=== PATIENT | female | born 1990 | race Caucasian/White ===

== ENCOUNTER 2019-05-15 10:10 | Inpatient (IN) | payer BC ==
[~2019-05-15] VITALS: Ht 177.8 cm; Wt 75.0 kg
--- NOTE | 2019-05-15 10:38 | NUR ---
PT HERE WITH C/O VB, CRAMPING, AND RIGHT AND LEFT LOWER QUADRANT ABOMINAL PAIN. PT STATES SHE IS APPROX. 14 WEEKS BUT STATES "MY OB THINKS IT'S ECTOPIC OR MOLAR BECAUSE IT'S WEIRD AND THEY CAN'T EVER SEE A BABY ON THE US AND THERE'S NO HEARTBEAT OR ANYTHING." PT AAO X 4, DRESSED IN GOWN AND ATTACHED TO MONITOR. NAD, ROOM AIR, CALL LIGHT WITHIN REACH, AT BEDSIDE FOR EXAM AND PLAN IS TO DO LABS AND US.
--- NOTE | 2019-05-15 10:44 | NUR ---
PT TO US.
[2019-05-15 10:55] LABS: BASOPHILS # (AUTO) 0.03 x10^3/uL (0-0.1); BASOPHILS % (AUTO) 1 % (0-1); EOSINOPHILS # (AUTO) 0.08 x10^3/uL (0-0.4); EOSINOPHILS % (AUTO) 2 % (1-7); LYMPHOCYTES # (AUTO) 1.79 x10^3/uL (1-3.4); LYMPHOCYTES % (AUTO) 50 % (22-44); MD NO; MEAN CORPUSCULAR HEMOGLOBIN 31.6 pg (27.0-34.8); MEAN CORPUSCULAR HGB CONC 32.9 g/dL (32.4-35.8); MEAN CORPUSCULAR VOLUME 95.9 fL (80-100); MEAN PLATELET VOLUME 8.2 fL (7.4-10.4); MONOCYTES # (AUTO) 0.49 x10^3/uL (0.2-0.8); MONOCYTES % (AUTO) 14 % (2-9); NEUTROPHILS % (AUTO) 34 % (42-75); PLATELET COUNT 162 x10^3/uL (130-400); RED BLOOD COUNT 4.14 x10^6/uL (3.82-5.3); RED CELL DISTRIBUTION WIDTH 13.3 % (9.6-15.2)
[2019-05-15 11:00] LABS: INTERNATIONAL NORMALIZED RATIO 0.89 (0.93-1.1); PROTHROMBIN TIME 9.4 Seconds (9.6-11.5)
[2019-05-15 11:03] LABS: ALANINE AMINOTRANSFERASE 262 U/L (12-78); ALBUMIN 3.9 g/dL (3.4-5.0); ANION GAP 4 mmol/L (5-15); CALCIUM 8.6 mg/dL (8.5-10.1); CHLORIDE 110 mmol/L (98-107); CREATININE 0.71 mg/dL (0.55-1.02)
[2019-05-15 11:08] LABS: ALKALINE PHOSPHATASE 56 U/L (45-117); BILIRUBIN,TOTAL 0.3 mg/dL (0.2-1.0); TOTAL PROTEIN 7.6 g/dL (6.4-8.2)
--- NOTE | 2019-05-15 11:21 | NUR ---
PT BACK FROM US.
--- NOTE | 2019-05-15 11:51 | NUR ---
ALL RESULTS BACK AT THIS TIME, CHART UP FOR RECHECK.
[2019-05-15 12:43] VITALS: BP 117/75
--- NOTE | 2019-05-15 12:43 | NUR ---
THIS RN DISCUSSED WITH MD THE PT'S POC, PLAN FOR ADMIT AND OR AT 1430 FOR D&C. PIV ESTABLISHED BY THIS RN, PT UPDATED AND AWARE.
--- NOTE | 2019-05-15 13:19 | NUR ---
REPORT GIVEN TO PRE-OP RN LUDWIG. PT TO TRANSFER TO PRE-OP FOR SURGERY.
[2019-05-15] MEDS ORDERED: LACTATED RINGERS 1,000 ML IV SCH (13:55)
[2019-05-15] MEDS ORDERED: PROPOFOL 50 ML ONE (15:52)
[2019-05-15] MEDS ORDERED: MIDAZOLAM 1 MG/ML, 2ML ONE (15:52)
[2019-05-15] MEDS ORDERED: FENTANYL PF 250 MCG/5ML ONE (15:53)
[2019-05-15] MEDS ORDERED: BUPIVACAINE/PF 0.25% ONE (16:07)
[2019-05-15] MEDS ORDERED: MISOPROSTOL 200 MCG TABLET ONE (16:07)
[2019-05-15] MEDS ORDERED: METHYLERGONOVINE 0.2 MG/ML IM ONE (16:08)
[2019-05-15] MEDS ORDERED: EPINEPHRINE 1 MG/ML, 1ML ONE (16:08)
[2019-05-15] MEDS ORDERED: OXYTOCIN 10 UNITS/ML, 1ML ONE (16:08)
[2019-05-15] MEDS ORDERED: FENTANYL PF 100 MCG/2ML ONE (16:16)
[2019-05-15] MEDS ORDERED: DEXAMETHASONE 4 MG/ML, 1ML ONE (16:26)
[2019-05-15] MEDS ORDERED: ONDANSETRON 2MG/ML, 2ML ONE (16:26)
[2019-05-15] MEDS ORDERED: KETOROLAC 30 MG/1 ML ONE (16:26)
[2019-05-15] MEDS ORDERED: DIAZEPAM 5 MG/ML, 2ML IVPush PRN (16:30)
[2019-05-15] MEDS ORDERED: ONDANSETRON 2MG/ML, 2ML IV PRN (16:30)
[2019-05-15] MEDS ORDERED: PROMETHAZINE 25 MG/ML, 1ML IV PRN (16:30)
[2019-05-15] MEDS ORDERED: EPHEDRINE 50 MG/ML, 1ML IM PRN (16:30)
[2019-05-15] MEDS ORDERED: DIPHENHYDRAMINE 50 MG/ML, 1ML IVPush PRN (16:30)
[2019-05-15] MEDS ORDERED: ONDANSETRON ODT 8 MG PO PRN (16:30)
[2019-05-15] MEDS ORDERED: HYDROmorphone 2 MG/ML, 1ML IVPush PRN ×2 (16:30→17:00)
[2019-05-15] MEDS ORDERED: ACETAMINOPHEN 325 MG TABLET PO PRN (16:30)
[2019-05-15] MEDS ORDERED: MEPERIDINE/PF 25MG/ML,1ML IVPush PRN (16:30)
[2019-05-15] MEDS ORDERED: OXYcodone 5 MG/5 ML ORAL.SOL UDC PO PRN ×2 (16:30→17:00)
[2019-05-15] MEDS: FENTANYL PF 100 MCG/2ML IV PRN ×2 (16:31→16:38)
[2019-05-15] MEDS ORDERED: OXYcodone 5 MG/5 ML ORAL.SOL UDC ONE (16:33)
== END 2019-05-15 17:40 | disposition home or self-care (01) | DRG 779 ==
LOC: ED 12:20 → EDIP 12:21 → ED 12:31
PROVIDERS: ADMIT Obstetrics & Gynecology Female Pelvic Medicine and Reconstructive Surgery; ATTEND Obstetrics & Gynecology Female Pelvic Medicine and Reconstructive Surgery
PROC: 10D17Z9 Manual Extraction of Products of Conception, Retained, Via Natural or Artificial Opening (ICD-10-PCS; principal; 2019-05-15 14:30)
DX: O02.1 Missed abortion (principal); O26.21 Pregnancy care for patient with recurrent pregnancy loss, first trimester; Z3A.12 12 weeks gestation of pregnancy
CPT/HCPCS: 36415; 76801; 80053; 84702; 85025; 85610; 86901; 88305; J0171; J1100; J1885; J2250; J2405; J2704; J3010; J3490; J2210; J2590

== ENCOUNTER 2021-02-05 08:37 | Inpatient (IN) | payer OTHER ==
[~2021-02-05] VITALS: Ht 177.8 cm; Wt 82.0 kg
[2021-02-05] MEDS: LACTATED RINGERS 1,000 ML IV SCH (23:40)
[2021-02-05 23:54] LABS: BASOPHILS % (AUTO) 1 % (0-1); EOSINOPHILS % (AUTO) 1 % (1-7); LYMPHOCYTES % (AUTO) 25 % (22-44); MEAN CORPUSCULAR HGB CONC 33.2 g/dL (32.4-35.8); MEAN PLATELET VOLUME 8.3 fL (7.4-10.4); MONOCYTES % (AUTO) 8 % (2-9); NEUTROPHILS % (AUTO) 65 % (42-75); PLATELET COUNT 174 x10^3/uL (130-400); RED BLOOD COUNT 4.01 x10^6/uL (3.82-5.3); RED CELL DISTRIBUTION WIDTH 13.8 % (9.6-15.2)
[2021-02-06] MEDS ORDERED: TERBUTALINE 1 MG/ML, 1ML IVPush PRN
[2021-02-06] MEDS ORDERED: TERBUTALINE 1 MG/ML, 1ML SQ PRN
[2021-02-06] MEDS ORDERED: OXYTOCIN 30U/ 0.9% NaCL 500ML 500 ML IV PRN
[2021-02-06] MEDS ORDERED: FENTANYL PF 100 MCG/2ML IVPush PRN
[2021-02-06] MEDS ORDERED: FENTANYL PF 100 MCG/2ML IV PRN
[2021-02-06] MEDS ORDERED: ONDANSETRON 2MG/ML, 2ML IVPush PRN
[2021-02-06 00:13] VITALS: BP 123/75
[2021-02-06] MEDS ORDERED: PLEASE ENTER HEIGHT AND WEIGHT MC SCH (00:30)
[2021-02-06] MEDS ORDERED: FENTANYL/BUPIV./NS/PF 250 ML EPIDCONT ONE (06:02)
[2021-02-06] MEDS ORDERED: BUPIVACAINE 0.25% ONE (06:30)
[2021-02-06] MEDS ORDERED: LIDOCAINE/PF 1.5%-EPI 1:200K, 30ML ONE (06:30)
[2021-02-06] MEDS ORDERED: LACTATED RINGERS 1,000 ML IV SCH (07:30)
[2021-02-06] MEDS ORDERED: LACTATED RINGERS 1,000 ML IVBOLUS PRN (07:30)
[2021-02-06] MEDS ORDERED: NALOXONE 0.4 MG/ML, 1ML IVPush PRN (07:30)
[2021-02-06] MEDS: FENTANYL/BUPIV./NS/PF 250 ML EPIDCONT SCH ×3 (07:30→12:30)
[2021-02-06] MEDS ORDERED: EPHEDRINE 50 MG/ML, 1ML IVPush PRN (07:30)
[2021-02-06] MEDS: D5%-LACTATED RINGERS 1,000 ML IV SCH ×2 (08:00)
[2021-02-06] MEDS: LACTATED RINGERS 1,000 ML IV SCH ×2 (08:00→16:00)
[2021-02-06] MEDS ORDERED: SIMETHICONE 80 MG CHEW TAB PO PRN (13:30)
[2021-02-06] MEDS ORDERED: METOCLOPRAMIDE 5 MG/ML, 2ML IV PRN (13:30)
[2021-02-06] MEDS ORDERED: ONDANSETRON 2MG/ML, 2ML IV PRN (13:30)
[2021-02-06] MEDS ORDERED: MISOPROSTOL 200 MCG TABLET PR PRN (13:30)
[2021-02-06] MEDS ORDERED: ACETAMINOPHEN 325 MG TABLET PO PRN (13:30)
[2021-02-06] MEDS ORDERED: OXYTOCIN 30U/ 0.9% NaCL 500ML 500 ML IV SCH (13:30)
[2021-02-06] MEDS: IBUPROFEN 600 MG TABLET PO PRN ×2 (16:00→21:54)
[2021-02-06 17:00] VITALS: BP 118/70
[2021-02-06 20:00] VITALS: BP 121/81
[2021-02-06 21:18] LABS: BASOPHILS % (AUTO) 0 % (0-1); EOSINOPHILS % (AUTO) 0 % (1-7); LYMPHOCYTES % (AUTO) 15 % (22-44); MEAN CORPUSCULAR HEMOGLOBIN 29.2 pg (27.0-34.8); MEAN CORPUSCULAR HGB CONC 33.3 g/dL (32.4-35.8); MEAN PLATELET VOLUME 8.4 fL (7.4-10.4); MONOCYTES % (AUTO) 7 % (2-9); NEUTROPHILS % (AUTO) 78 % (42-75); PLATELET COUNT 174 x10^3/uL (130-400); RED BLOOD COUNT 3.92 x10^6/uL (3.82-5.3); RED CELL DISTRIBUTION WIDTH 13.9 % (9.6-15.2)
[2021-02-06] MEDS: DOCUSATE 100 MG CAPSULE PO PRN (21:54)
[2021-02-06] MEDS: HYDROcodone/APAP 5/325 TABLET PO PRN (23:08)
[2021-02-06 23:28] VITALS: BP 124/83
[2021-02-07 04:00] VITALS: BP 120/72
[2021-02-07 07:45] VITALS: BP 119/84
[2021-02-07] MEDS: DOCUSATE 100 MG CAPSULE PO PRN (08:16)
[2021-02-07] MEDS: HYDROcodone/APAP 5/325 TABLET PO PRN ×2 (08:23→14:25)
[2021-02-07] MEDS: IBUPROFEN 600 MG TABLET PO PRN ×2 (08:31→14:25)
[2021-02-07] MEDS ORDERED: PRENATAL VIT/IRON/FA 1 EACH TABLET PO SCH (09:00)
[2021-02-07 12:22] VITALS: BP 120/81
[2021-02-07] MEDS ORDERED: IBUP-1222 PO ×3 (12:55→12:58)
== END 2021-02-07 16:25 | disposition home or self-care (01) | DRG 806 ==
LOC: LDIP 23:24 → 2NW 02-06 16:33
PROVIDERS: ADMIT Obstetrics & Gynecology Female Pelvic Medicine and Reconstructive Surgery; ATTEND Obstetrics & Gynecology Female Pelvic Medicine and Reconstructive Surgery
PROC: 10E0XZZ Delivery of Products of Conception, External Approach (ICD-10-PCS; principal; 2021-02-06)
PROC: 0UQGXZZ Repair Vagina, External Approach (ICD-10-PCS; 2021-02-06)
PROC: 3E0R3BZ Introduction of Anesthetic Agent into Spinal Canal, Percutaneous Approach (ICD-10-PCS; 2021-02-06)
PROC: 00HU33Z Insertion of Infusion Device into Spinal Canal, Percutaneous Approach (ICD-10-PCS; 2021-02-06)
PROC: 3E033VJ Introduction of Other Hormone into Peripheral Vein, Percutaneous Approach (ICD-10-PCS; 2021-02-06)
DX: O48.0 Post-term pregnancy (principal); O71.4 Obstetric high vaginal laceration alone; Z37.0 Single live birth; Z3A.40 40 weeks gestation of pregnancy; Z20.822 Contact with and (suspected) exposure to COVID-19
CPT/HCPCS: 36415; J3490; 85025; 86592; 86850; 86900; 87635; G0378; J3010; J2590; J7120